=== PATIENT | female | born 1975 | race Caucasian/White ===

== ENCOUNTER 2018-10-27 22:36 | Emergency (ER) | payer OTHER ==
[~2018-10-27] VITALS: Ht 165.1 cm; Wt 76.7 kg
[2018-10-27 22:40] VITALS: BP 134/107
--- NOTE | 2018-10-27 22:53 | NUR ---
PT BIB FAMILY FOR R SHOULDER PAIN AT 10/10 X3 DAYS. PT REPORTS SHOULDER PAIN X2 YEARS THAT HAS BECOME UNBEARABLE THE PAST 3 DAYS. NO ERYTHEMA, EDEMA, OR VISUAL DEFORMITY PRESENT. PT IS SEEING ASSISTANT SURVEYOR, BUT STATES IT HAS NOT HELPED. ER MD TO SEE PT. SIDE RAILS UP, BED IN LOWEST POSITION, WILL CONTINUE TO MONITOR.
[2018-10-27] MEDS ORDERED: KETOROLAC 30 MG/ML VIAL IM ONE (23:10)
[2018-10-27] MEDS ORDERED: MORPHINE SULFATE 4 MG/ML SYR IM ONE (23:10)
== END 2018-10-27 23:30 | disposition home or self-care (01) ==
LOC: MED 22:36
DX: M25.511 Pain in right shoulder (principal); Z88.8 Allergy status to other drugs, medicaments and biological substances; Z98.890 Other specified postprocedural states
CPT/HCPCS: 81002; 81025; 96372; 99283; J1885; J2270

== ENCOUNTER 2019-01-28 17:04 | Emergency (ER) | payer OTHER ==
[~2019-01-28] VITALS: Ht 167.6 cm; Wt 73.5 kg
--- NOTE | 2019-01-28 17:11 | NUR ---
Patient to bed 5. RN evaluating patient at bedside.
[2019-01-28 17:12] VITALS: BP 134/86
--- NOTE | 2019-01-28 17:12 | NUR ---
C/O SOB X2 DAYS, BREATHING IS SLIGHTLY LABORED, O2 SAT 98% RA, WHEEZES THROUGHOUT BILAT. DENIES N/V/D; SKIN IS PINK/WARM/DRY; AAOX4 WITH EVEN AND STEADY GAIT; HR EVEN AND REGULAR; VSS; PATIENT POSITIONED FOR COMFORT; HOB ELEVATED; BEDRAILS UP X1; BED DOWN. ER MD MADE AWARE OF PT STATUS.
[2019-01-28] MEDS ORDERED: ALBUTEROL 0.083% 2.5 MG/3 ML NEBU INH ONE (17:20)
[2019-01-28] MEDS ORDERED: predniSONE 20 MG TAB PO ONE (17:20)
[2019-01-28] MEDS ORDERED: IPRATROPIUM 0.02% 0.5 MG/2.5 ML NEBU INH ONE (17:20)
--- NOTE | 2019-01-28 17:30 | NUR ---
Breathing treatment administered at bedside by respiratory therapist.
--- NOTE | 2019-01-28 18:55 | NUR ---
Patient discharged with v/s stable. Written and verbal after care instructions given and explained. Patient alert, oriented and verbalized understanding of instructions. Ambulatory with steady gait. All questions addressed prior to discharge. ID band removed. Patient advised to follow up with PMD. Rx of flonase, prednisone, albuterol given. Patient educated on indication of medication including possible reaction and side effects. Opportunity to ask questions provided and answered.
[2019-01-28 18:56] VITALS: BP 128/82
== END 2019-01-28 18:55 | disposition home or self-care (01) ==
LOC: MED 17:04
DX: J98.01 Acute bronchospasm (principal); J30.2 Other seasonal allergic rhinitis; Z88.8 Allergy status to other drugs, medicaments and biological substances; Z90.49 Acquired absence of other specified parts of digestive tract; Z90.710 Acquired absence of both cervix and uterus
CPT/HCPCS: 94640; 99283; J7512; J7613; J7644

== ENCOUNTER 2019-05-18 09:19 | Emergency (ER) | payer OTHER ==
[~2019-05-18] VITALS: Ht 167.6 cm; Wt 70.8 kg
[2019-05-18 09:30] VITALS: BP 127/81
--- NOTE | 2019-05-18 09:45 | NUR ---
LLQ PAIN X 10 DAYS , PAIN RAIDATES TO LEFT LEG AND BACK. PT TOOK TRAMADOL DID NOT WORK. VOMITTED THIS MORNING . PT HAS CONCERN FOR CONSTIPATION BUT PT HAD ONE TIME BM YESTERDAY. C/O DIZZY WELL. 06/06. VSS; PATIENT POSITIONED FOR COMFORT; HOB ELEVATED; BEDRAILS UP X1; BED DOWN. ER MD MADE AWARE OF PT STATUS.
[2019-05-18] MEDS ORDERED: NACL 0.9% 1,000 ML IV SCH (09:58)
[2019-05-18] MEDS ORDERED: KETOROLAC 30 MG/ML VIAL IVP ONE (10:00)
[2019-05-18] MEDS ORDERED: ONDANSETRON 4 MG/2 ML VIAL IVP ONE (10:00)
[2019-05-18 10:24] LABS: APPEARANCE,URINE HAZY (CLEAR); BILIRUBIN,URINE NEGATIVE (NEGATIVE); BLOOD, URINE NEGATIVE (NEGATIVE); COLOR,URINE YELLOW (YELLOW); LEUKOCYTE ESTERASE ,URINE NEGATIVE (NEGATIVE); NITRITE, URINE NEGATIVE (NEGATIVE); PH,URINE 8.5 (5.0-9.0); UGLUCOSE NEGATIVE (NEGATIVE)
[2019-05-18 10:28] LABS: BASOPHILS # (AUTO) 0.1 K/uL (0.00-0.22); BASOPHILS % (AUTO) 0.7 % (0.0-2.0); EOSINOPHILS # (AUTO) 0.2 K/uL (0-0.4); EOSINOPHILS % (AUTO) 2.9 % (0.0-4.0); HEMATOCRIT 40.6 % (36-48); HEMOGLOBIN 13.8 g/dL (12.0-16.0); LYMPHOCYTES % (AUTO) 26.4 % (20.5-51.1); MEAN CORPUSCULAR HEMOGLOBIN 32 pg (27-31); MEAN CORPUSCULAR HGB CONC 34 g/dL (33-37); MEAN CORPUSCULAR VOLUME 92.9 fL (80-94); MONOCYTES # (AUTO) 0.7 K/uL (0.8-1.0); NEUTROPHILS # (AUTO) 4.7 K/uL (1.8-7.7); PLATELET COUNT (AUTO) 331 K/uL (140-450); RED BLOOD CELL COUNT(AUTO) 4.37 MIL/uL (4.20-5.40); RED CELL DISTRIBUTION WIDTH 12.8 % (11.6-13.7); WHITE BLOOD COUNT (AUTO) 7.6 K/uL (4.8-10.8)
[2019-05-18 10:35] LABS: RBC,URINE 0-5 /HPF (0-5); WBC,URINE 0-5 /HPF (0-5)
[2019-05-18 10:41] LABS: ANION GAP 11.2 (8-16); CARBON DIOXIDE 30.1 mmol/L (21-32); CREATININE 0.8 mg/dL (0.6-1.3); POTASSIUM 4.3 mmol/L (3.5-5.1)
[2019-05-18 10:44] LABS: ALBUMIN 3.7 g/dL (3.4-5.0); TOTAL BILIRUBIN 0.2 mg/dL (0.0-1.0)
--- NOTE | 2019-05-18 11:20 | NUR ---
PT STATES STILL HAVING 8/[address] MONSALVE NOTIFIED.
[2019-05-18] MEDS ORDERED: MORPHINE SULFATE 4 MG/ML SYR IVP ONE (11:25)
--- NOTE | 2019-05-18 13:46 | NUR ---
PT IS RESTING IN BED. VSS.
[2019-05-18 14:05] VITALS: BP 125/78
--- NOTE | 2019-05-18 14:05 | NUR ---
Patient discharged with v/s stable. Written and verbal after care instructions given and explained. Patient alert, oriented and verbalized understanding of instructions. Ambulatory with steady gait. All questions addressed prior to discharge. ID band removed. Patient advised to follow up with PMD. Rx of Colace and Miralax given. Patient educated on indication of medication including possible reaction and side effects. Opportunity to ask questions provided and answered.
== END 2019-05-18 14:05 | disposition home or self-care (01) ==
LOC: MED 09:19
DX: K59.00 Constipation, unspecified (principal); R11.2 Nausea with vomiting, unspecified; Z90.49 Acquired absence of other specified parts of digestive tract; Z90.710 Acquired absence of both cervix and uterus; Z98.890 Other specified postprocedural states; Z88.8 Allergy status to other drugs, medicaments and biological substances
CPT/HCPCS: 36415; 74176; 76830; 80053; 81001; 81025; 85025; 93976; 96361; 96374; 96375; 99284; J1885; J2270; J2405; J7030; Q0092

== ENCOUNTER 2019-09-11 22:57 | Emergency (ER) | payer OTHER ==
[~2019-09-11] VITALS: Ht 162.6 cm; Wt 71.3 kg
[2019-09-11 23:37] VITALS: BP 126/81
--- NOTE | 2019-09-12 00:05 | NUR ---
44 Y/O FEMALE 9/10 RIGHT FLANK PAIN X 3 HOURS WITH +NAUSEA +VOMITING. DENIES FEVER, CHILLS. DENIES HEMATURIA. PT STATES SHE FEELS LIKE SHE IS GOING TO PASS OUT WITH DIZZINESS AND LIGHTHEADEDNESS. NO DIAPHORESIS NOTED. PT IS PALE. AMBULATES WITH UPRIGHT, STEADY GAIT. BP: 126/81. STOMACH IS FLAT; BOWEL SOUNDS HEARD ON ALL FOUR QUADRANTS. PAIN UPON PALPATING LOWER ABDOMEN. ERMD MADE AWARE. SIDE RAILSX1. WILL CONTINUE TO MONITOR. PMH-- DENIES RX-- DENIES
--- NOTE | 2019-09-12 00:05 | NUR ---
PT AMBULATED TO BED 05
[2019-09-12] MEDS ORDERED: MORPHINE SULFATE 2 MG/ML SYR IVP ONE (02:45)
[2019-09-12 02:51] LABS: BASOPHILS # (AUTO) 0.1 K/uL (0.00-0.22); BASOPHILS % (AUTO) 1.1 % (0.0-2.0); EOSINOPHILS # (AUTO) 0.4 K/uL (0-0.4); EOSINOPHILS % (AUTO) 4.8 % (0.0-4.0); HEMATOCRIT 41.2 % (36-48); LYMPHOCYTES # (AUTO) 3.5 K/uL (2.5-16.5); LYMPHOCYTES % (AUTO) 38.9 % (20.5-51.1); MEAN CORPUSCULAR HEMOGLOBIN 32 pg (27-31); MEAN CORPUSCULAR HGB CONC 34 g/dL (33-37); MEAN CORPUSCULAR VOLUME 94.1 fL (80-94); MONOCYTES # (AUTO) 0.7 K/uL (0.8-1.0); MONOCYTES % (AUTO) 7.9 % (1.7-9.3); NEUTROPHILS # (AUTO) 4.2 K/uL (1.8-7.7); NEUTROPHILS % (AUTO) 47.3 % (42.2-75.2); PLATELET COUNT (AUTO) 315 K/uL (140-450); RED BLOOD CELL COUNT(AUTO) 4.38 MIL/uL (4.20-5.40); RED CELL DISTRIBUTION WIDTH 12.5 % (11.6-13.7); WHITE BLOOD COUNT (AUTO) 8.9 K/uL (4.8-10.8)
[2019-09-12 03:03] LABS: ANION GAP 10.9 (8-16); CARBON DIOXIDE 29.5 mmol/L (21-32); CREATININE 0.8 mg/dL (0.6-1.3); POTASSIUM 4.4 mmol/L (3.5-5.1)
[2019-09-12 03:09] LABS: ALBUMIN 3.6 g/dL (3.4-5.0); TOTAL BILIRUBIN 0.2 mg/dL (0.0-1.0)
--- NOTE | 2019-09-12 03:30 | NUR ---
PT. TAKEN TO CT.
[2019-09-12] MEDS ORDERED: KETOROLAC 30 MG/ML VIAL IVP ONE (03:35)
--- NOTE | 2019-09-12 05:39 | NUR ---
PATIENT'S PAIN IS NOW AT A 4/10.
[2019-09-12 06:41] VITALS: BP 126/81
--- NOTE | 2019-09-12 06:41 | NUR ---
Patient discharged with v/s stable. Written and verbal after care instructions given and explained. Patient verbalized understanding. Ambulatory with steady gait. All questions addressed prior to discharge. Advised to follow up with PMD.
== END 2019-09-12 06:41 | disposition home or self-care (01) ==
LOC: MED 22:57
DX: R10.9 Unspecified abdominal pain (principal); R11.0 Nausea; R42 Dizziness and giddiness; Z90.49 Acquired absence of other specified parts of digestive tract; Z88.8 Allergy status to other drugs, medicaments and biological substances; Z90.710 Acquired absence of both cervix and uterus
CPT/HCPCS: 36415; 74176; 80053; 81002; 81025; 82150; 83690; 85025; 96374; 96375; 99284; J1885; J2270

== ENCOUNTER 2021-07-23 01:01 | Emergency (ER) | payer OTHER ==
[~2021-07-23] VITALS: Ht 162.6 cm; Wt 69.9 kg
[2021-07-23 01:07] VITALS: BP 147/99
--- NOTE | 2021-07-23 01:21 | NUR ---
Mal clark in ED - 07/23/21 at 0124 by SAV Patient discharged with v/s stable. Written and verbal after care instructions given and explained. Patient verbalized understanding. Ambulatory with steady gait. All questions addressed prior to discharge. Advised to follow up with PMD.
--- NOTE | 2021-07-23 01:29 | NUR ---
TO BED AMBULATORY
--- NOTE | 2021-07-23 01:36 | NUR ---
45 yo f bib self with c/c of sob and chest pain / x saturday morning. chest pain is nonrad. no n/v. pt states during seasonal changes pt becomes sob. o2 sat on ra 97%. wheezing audible. pt's primary provider referred pt to nursing specialist, pt states it is not until august. dx: hypothyroidism and arthritis rx: levothyroxine and amaryl
[2021-07-23] MEDS ORDERED: ALBUTEROL SULFATE/IPRATROPIU 3 ML SOL IH ONE (02:45)
--- NOTE | 2021-07-23 03:02 | NUR ---
rt at bedside.
--- NOTE | 2021-07-23 03:29 | NUR ---
wheezes subsided minimally. pt states she feels much better.
[2021-07-23] MEDS ORDERED: PRED20TA5 PO (04:29)
[2021-07-23] MEDS ORDERED: ALBU0.0912 IH (04:29)
[2021-07-23 04:34] VITALS: BP 122/73
--- NOTE | 2021-07-23 04:34 | NUR ---
Patient discharged with v/s stable. Written and verbal after care instructions given and explained. Patient alert, oriented and verbalized understanding of instructions. Ambulatory with steady gait. All questions addressed prior to discharge. ID band removed. Patient advised to follow up with PMD. Rx of prednisone and albuterol given. Patient educated on indication of medication including possible reaction and side effects. Opportunity to ask questions provided and answered.
== END 2021-07-23 04:34 | disposition home or self-care (01) ==
LOC: MED 01:01
DX: R06.00 Dyspnea, unspecified (principal); J45.909 Unspecified asthma, uncomplicated; Z79.899 Other long term (current) drug therapy; Z88.8 Allergy status to other drugs, medicaments and biological substances
CPT/HCPCS: 94640; 99283

== ENCOUNTER 2022-12-23 21:22 | Emergency (ER) | payer OTHER ==
[~2022-12-23] VITALS: Ht 162.6 cm; Wt 72.6 kg
[~2022-12-23 21:22] MED LIST: ALBU0.0912 IH; PRED20TA5 PO
[2022-12-23 21:48] VITALS: BP 137/89
--- NOTE | 2022-12-23 22:28 | NUR ---
Blood for labwork drawn by seed district sales manager. Patient tolerated well.
--- NOTE | 2022-12-23 22:33 | NUR ---
pt taken to CT via w/c
[2022-12-23 22:38] LABS: BASOPHILS # (AUTO) 0.1 K/uL (0.00-0.22); EOSINOPHILS # (AUTO) 0.2 K/uL (0-0.4); EOSINOPHILS % (AUTO) 2.6 % (0.0-4.0); HEMATOCRIT 41.6 % (36-48); HEMOGLOBIN 13.9 g/dL (12.0-16.0); LYMPHOCYTES # (AUTO) 4.3 K/uL (2.5-16.5); LYMPHOCYTES % (AUTO) 46.6 % (20.5-51.1); MEAN CORPUSCULAR HEMOGLOBIN 31 pg (27-31); MEAN CORPUSCULAR HGB CONC 34 g/dL (33-37); MONOCYTES # (AUTO) 0.8 K/uL (0.8-1.0); MONOCYTES % (AUTO) 8.6 % (1.7-9.3); NEUTROPHILS # (AUTO) 3.8 K/uL (1.8-7.7); NEUTROPHILS % (AUTO) 41.2 % (42.2-75.2); PLATELET COUNT (AUTO) 372 K/uL (140-450); RED BLOOD CELL COUNT(AUTO) 4.47 MIL/uL (4.20-5.40); RED CELL DISTRIBUTION WIDTH 12.9 % (11.6-13.7); WHITE BLOOD COUNT (AUTO) 9.2 K/uL (4.8-10.8)
[2022-12-23 22:50] LABS: APPEARANCE,URINE CLEAR (CLEAR); BILIRUBIN,URINE NEGATIVE (NEGATIVE); BLOOD, URINE NEGATIVE (NEGATIVE); COLOR,URINE YELLOW (YELLOW); LEUKOCYTE ESTERASE ,URINE NEGATIVE (NEGATIVE); NITRITE, URINE NEGATIVE (NEGATIVE); PH,URINE 6.5 (5.0-9.0); UGLUCOSE NEGATIVE (NEGATIVE)
--- NOTE | 2022-12-23 22:50 | NUR ---
c/o RLQ abd pain x 3 days. per pt pmhx, arthritis, and hypothyroidism, hysterectomy and appendectomy. pt states allergy to enoxaparin. denies any n/v/d
[2022-12-23 23:01] LABS: ALBUMIN 4.3 g/dL (3.4-5.0); ANION GAP 11.7 (8-16); CARBON DIOXIDE 30.1 mmol/L (21-32); CREATININE 0.8 mg/dL (0.6-1.3); POTASSIUM 4.8 mmol/L (3.5-5.1); TOTAL BILIRUBIN 0.3 mg/dL (0.0-1.0)
[2022-12-23] MEDS: MORPHINE SULFATE 4 MG/ML SYR IVP ONE (23:05)
[2022-12-23] MEDS: ONDANSETRON 4 MG/2 ML VIAL IVP ONE (23:05)
[2022-12-23] MEDS: NACL 0.9% 1,000 ML IV ONE (23:05)
[2022-12-24] MEDS ORDERED: METH-1681 PO (00:37)
[2022-12-24] MEDS ORDERED: FAMO-90 PO (00:37)
[2022-12-24] MEDS ORDERED: SIME125T38 PO (00:37)
[2022-12-24 00:42] VITALS: BP 104/61
--- NOTE | 2022-12-24 00:45 | NUR ---
Patient discharged with v/s stable. Written and verbal after care instructions given and explained. Patient verbalized understanding. Ambulatory with steady gait. Pt taken home by . All questions addressed prior to discharge. Advised to follow up with PMD.
--- NOTE | 2022-12-28 07:50 | NUR ---
LATE ENTRY -- CONFIRMED WITH NURSE, NS INFUSION END TIME IS 0005 12/24/22
== END 2022-12-24 00:45 | disposition home or self-care (01) ==
LOC: MED 21:22
DX: R10.11 Right upper quadrant pain (principal); E03.9 Hypothyroidism, unspecified; Z88.8 Allergy status to other drugs, medicaments and biological substances; Z79.899 Other long term (current) drug therapy; Z90.49 Acquired absence of other specified parts of digestive tract; Z90.710 Acquired absence of both cervix and uterus
CPT/HCPCS: 36415; 74176; 76705; 80053; 81003; 83690; 85025; 87086; 96361; 96374; 96375; 99285; J2270; J2405; J7030; Q0092

== ENCOUNTER 2023-08-12 11:02 | Emergency (ER) | payer OTHER ==
[~2023-08-12] VITALS: Ht 162.6 cm; Wt 74.4 kg
[~2023-08-12 11:02] MED LIST changes: +FAMO-90 PO; +METH-1681 PO; +SIME125T38 PO
[2023-08-12 11:24] VITALS: BP 132/87; PULSE 79; RESP 18; TEMP 97.4; O2SAT 96
[2023-08-12] MEDS ORDERED: IBUPROFEN 600 MG TAB PO ONE (12:40)
[2023-08-12] MEDS ORDERED: IBUP-2213 PO (12:50)
[2023-08-12] MEDS ORDERED: CYCL-711 PO (12:50)
[2023-08-12 13:00] VITALS: BP 132/87; PULSE 79; RESP 18; TEMP 97.4; O2SAT 96
== END 2023-08-12 13:01 | disposition home or self-care (01) ==
LOC: MED 11:02
DX: M54.10 Radiculopathy, site unspecified (principal); E03.9 Hypothyroidism, unspecified; Z79.899 Other long term (current) drug therapy; Z79.1 Long term (current) use of non-steroidal anti-inflammatories (NSAID); Z88.8 Allergy status to other drugs, medicaments and biological substances
CPT/HCPCS: 99283

== ENCOUNTER 2024-01-29 06:05 | Emergency (ER) | payer OTHER ==
[~2024-01-29] VITALS: Ht 162.6 cm; Wt 74.4 kg
[~2024-01-29 06:05] MED LIST changes: +CYCL-711 PO; +IBUP-2213 PO
[2024-01-29 06:10] VITALS: BP 127/82; PULSE 88; RESP 17; TEMP 98; O2SAT 97
[2024-01-29] MEDS ORDERED: NAPR-1704 PO (06:57)
[2024-01-29] MEDS ORDERED: CEPH-588 PO (06:57)
== END 2024-01-29 07:08 | disposition home or self-care (01) ==
LOC: MED 06:05
DX: L03.317 Cellulitis of buttock (principal); R03.0 Elevated blood-pressure reading, without diagnosis of hypertension; E03.9 Hypothyroidism, unspecified; Z90.710 Acquired absence of both cervix and uterus; Z90.49 Acquired absence of other specified parts of digestive tract; Z79.1 Long term (current) use of non-steroidal anti-inflammatories (NSAID); Z79.899 Other long term (current) drug therapy; Z88.8 Allergy status to other drugs, medicaments and biological substances
CPT/HCPCS: 99284